=== PATIENT | female | born 1950 | race Caucasian/White ===

== ENCOUNTER → 2018-03-31 | Outpatient (CLI) | payer MEDICARE, OTHER ==
[2018-03-31] VITALS (10 sets, daily range): BP systolic 130–199; BP diastolic 71–102; PULSE 68–85
[~2018-03-31] VITALS: Ht 170.2 cm; Wt 66.7 kg
[~2018-03-31] MED LIST: ASPIRIN E.C. 8181 MG PO; BYSTOLIC5 MG PO; GLUMETZA500 MG PO; KRILL OIL 1,001 EAC1 PO; MULTI VITAMINS1 TAB PO; PRILOSEC 20MG20 MG PO; SYNTHROID 0.0.025 MG PO; THERMOTABS 2871 TA1 PO
[2018-03-31 09:58] LABS: INR 0.9 (0.8-3.0); PROTHROMBIN TIME 10.3 SECONDS (9.7-12.8)
--- NOTE | 2018-03-31 11:05 | NUR ---
pt to ct per ambulation. Pt placed supine on ct table. Monitors applied to pt.
--- NOTE | 2018-03-31 11:20 | NUR ---
Specimens obtained by Dr Hamilton and placed in formalin. Specimen labeled.
== END ==
LOC: COL.RAD 08:57
PROVIDERS: Internal Medicine Gastroenterology
DX: E11.9 Type 2 diabetes mellitus without complications (principal); E78.00 Pure hypercholesterolemia, unspecified; R74.8 Abnormal levels of other serum enzymes